=== PATIENT | female | born 1985 | race American Indian/Alaskan Native ===

== ENCOUNTER 2017-01-29 15:40 | Emergency (ER) | payer SELFPAY ==
[2017-01-29 16:55] LABS: Basophils % (Auto) 0.3 % (0.0-1.8); Eosinophils % (Auto) 0.4 % (0.0-4.3); Hematocrit 39.5 % (30.3-42.9); Hemoglobin 13.6 gm/dl (10.1-14.3); Mean Corpuscular HGB Conc 34 % (30-34); Mean Corpuscular Hemoglobin 30 pg (28-32); Mean Corpuscular Volume 87 fl (79-97); Platelet Count 254 K/mm3 (140-440); Red Blood Count 4.54 M/mm3 (3.65-5.03); Red Cell Distribution Width 13.1 % (13.2-15.2); White Blood Count 14.2 K/mm3 (4.5-11.0)
[2017-01-29 17:14] LABS: Alanine Aminotransferase 28 units/L (7-56); Albumin 4.2 g/dL (3.9-5); Albumin/Globulin Ratio 1.1 %; Alkaline Phosphatase 147 units/L (35-129); Anion Gap 19 mmol/L; BUN/Creatinine Ratio 12.85; Blood Urea Nitrogen 9 mg/dL (7-17); Carbon Dioxide 26 mmol/L (22-30); Glucose 314 mg/dL (65-100); Lipase 21 units/L (13-60); Potassium 3.4 mmol/L (3.6-5.0); Sodium 139 mmol/L (137-145); Total Protein 7.9 g/dL (6.3-8.2)
[2017-01-29 18:20] LABS: Bilirubin,Urine NEG (Negative); Blood,Urine MOD (Negative); Ketones,Urine NEG (Negative); Leukocyte Esterase,Urine MOD (Negative); Mucus,Urine FEW /HPF; Nitrite,Urine NEG (Negative); Urobilinogen,Urine < 2.0 mg/dL (<2.0)
[2017-01-29] MEDS ORDERED: MORPHINE IV ONE (21:53)
[2017-01-29] MEDS ORDERED: TYLENOL PO ONE (21:53)
[2017-01-29] MEDS ORDERED: ZOFRAN IV ONE (21:53)
--- NOTE | 2017-01-29 21:54 | Emergency Department Report ---
HPI - General Chief Complaint: Abdominal Pain Time Seen by Provider: 01/29/17 21:50 - HPI HPI: I have abdominal pain 31-year-old -[place] female presents to ED, with epigastric pain. Patient stated the pain has been going on since yesterday seemed to be worse today. She describes the pain as cramping, burning in sensation. An intensity of the pain is 4-8 out of 10. The pain is worse when she leans forward or lifting. She denies any alleviating factors. She denies any nausea vomiting diarrhea. LMP was in July but she had her tubes tied. Standard measures cycle always been irregular. No fever, sick contacts, recent travel, exotic food consumption. ED Past Medical Hx - Past Medical History Previous Medical History?: No - Surgical History Past Surgical History?: Yes Additional Surgical History: c section - Social History Smoking Status: Never Smoker Substance Use Type: None - Medications Home Medications: Home Medications Medication Instructions Recorded Confirmed Last Taken Type Sulfamethoxazole/Trimethoprim 1 each PO BID #20 tablet 01/30/17 Unknown Rx [Bactrim DS TAB] amLODIPine [Norvasc] 10 mg PO DAILY #30 tab 01/30/17 Unknown Rx metFORMIN [Glucophage] 500 mg PO BID #60 tablet 01/30/17 Unknown Rx ED Review of Systems ROS: Stated complaint: STOMACH/BACK PAIN Other details as noted in HPI Comment: All other systems reviewed and negative Constitutional: fever, malaise, weakness Gastrointestinal: abdominal pain, nausea Physical Exam - Physical Exam Vital Signs: Vital Signs 01/29/17 16:30 Temperature 100.1 F H Pulse Rate 108 H Respiratory 16 Rate Blood Pressure 157/114 O2 Sat by Pulse 100 Oximetry Physical Exam: Vital signs reviewed Gen. alert and oriented 3 in no distress Head atraumatic normocephalic Eyes PERR LA EOMI Chest regular rate and rhythm normal S1-S2 lungs clear bilaterally Abdomen soft nondistended, mild epigastric tenderness. Back no point tenderness paravertebral tenderness Neuro no focal deficit. Psych normal mood. ED Course Vital Signs 01/29/17 16:30 Temperature 100.1 F H Pulse Rate 108 H Respiratory 16 Rate Blood Pressure 157/114 O2 Sat by Pulse 100 Oximetry - Reevaluation(s) Reevaluation #1: 01/30/17 01:05 Patient feels much better, wants to go home. She was advised about her new onset diabetes, high blood pressure. She was given proper education on how to use glucose meter, and how often to check glucose. She was given education about how to prevent hypoglycemic episode. She was advised to return to ED with worsening of symptoms. ED Medical Decision Making - Lab Data Result diagrams: 01/29/17 16:39 01/29/17 16:39 Critical care attestation.: If time is entered above; I have spent that time in minutes in the direct care of this critically ill patient, excluding procedure time. ED Disposition Clinical Impression: UTI (urinary tract infection), Diabetes, Hypertension Disposition: - TO HOME OR SELFCARE Is pt being admited?: No Does the pt Need Aspirin: No Condition: Stable Instructions: Abdominal Pain (ED), Diabetes Mellitus Type 2 in Adults (ED), Hypertension (ED) Prescriptions: amLODIPine [Norvasc] 10 mg PO DAILY #30 tab metFORMIN [Glucophage] 500 mg PO BID #60 tablet Sulfamethoxazole/Trimethoprim [Bactrim DS TAB] 1 each PO BID #20 tablet Referrals: PRIMARY CARE, [Primary Care Provider] - 3-5 Days
[2017-01-29] MEDS ORDERED: ROCEPHIN IV ONE (22:36)
[2017-01-29] MEDS ORDERED: NACL 0.9% 1000 ML 1,000 ML IV ONE (22:36)
[2017-01-29] MEDS ORDERED: ROCEPHIN/NS 2 GM/100 ML 2 GM/100 ML BAG IV ONE (23:00)
[2017-01-29] MEDS ORDERED: CATAPRES PO ONE (23:17)
--- NOTE | 2017-01-29 23:26 | Cat Scan Report ---
FINAL REPORT PROCEDURE: CT ABDOMEN PELVIS WO CON TECHNIQUE: Computerized axial tomography of the abdomen and pelvis was performed without intravenous contrast. This study is performed without intravascular contrast material and its sensitivity for abdominal and pelvic pathology, including neoplasms, inflammation, abscess, free fluid, thrombosis, arterial dissection and infarction, is reduced compared with a contrast enhanced study. HISTORY: abd pain COMPARISON: No prior studies are available for comparison. FINDINGS: Spleen and liver are top normal limits in size. There is cholelithiasis without evidence of cholecystitis or biliary ductal dilation. Pancreas appears normal. Adrenal glands and abdominal aorta are normal in size. 2 x 3 millimeter stone is seen in the mid right kidney. No left renal stones are seen. No ureteral stones or hydronephrosis are seen. There is small amount of hazy density adjacent to the right ureter and ovarian vein in the retroperitoneum. Mild reactive retroperitoneal lymph nodes are seen in the abdomen and pelvis. Consideration should be given to possible infection or inflammatory process within the right ureter. A recently passed stone could cause a similar appearance. Bladder appears normal. No free pelvic fluid is seen. Ovaries appear normal. Likely normal appendix is seen. Small umbilical hernia is seen containing fat. Mild right-sided constipation is suspected. There is 6.1 x 14.1 x 5.3 cm lipoma suspected in the left sciatic notch and left hip region. IMPRESSION: 2 x 3 millimeter stone is seen in the mid right kidney. No right ureteral stones are seen but there is mild periureteric streaky density. This could be from infection or inflammatory process in the right ureter but a recently passed stone could cause a similar appearance. There is cholelithiasis without evidence of cholecystitis. 6.1 x 14.1 x 5.3 cm lipoma is suspected in the left sciatic notch and left hip region. Mild right-sided constipation is seen.
[2017-01-30 01:23] VITALS: BP 117/78
== END 2017-01-30 01:34 | disposition home or self-care (01) ==
LOC: ED 15:40
DX: N39.0 Urinary tract infection, site not specified (principal); I10 Essential (primary) hypertension; E11.9 Type 2 diabetes mellitus without complications
CPT/HCPCS: 36415; 74176; 80048; 80053; 81001; 82962; 83036; 83690; 84484; 85025; 93005; 93010; 96365; 96375; 99285; J0696; J2270; J2405; J7030